=== PATIENT | male | born 1950 | race Two or more races ===

== ENCOUNTER 2020-02-21 19:23 | Inpatient (IN) | payer MEDICAID, MEDICARE ==
[~2020-02-21] VITALS: Ht 170.2 cm; Wt 96.6 kg
[2020-02-21] MEDS ORDERED: BUMETANIDE INJ 4 MG in IV NS 0.9% 50 ML IV ONE (19:30)
[2020-02-21] MEDS ORDERED: NTG 50 MG/D5W250 ML BOTTL 250 ML IV ONE ×2 (19:30→21:03)
--- NOTE | 2020-02-21 19:30 | NUR ---
BIB FROM HOME TO ER BED 5. AAOX3. MILD RESP DISTRESS, TACHYPNEIC. REPORTED SATTING @ 89% @ 6LPM. BROUGHT IN FOR SOB, DESATURATION AND CP SINCE THIS AM. PT WAS RECENTLY DISCHARGED FROM THE HOSPITAL. REPORTED NEGATIVE FOR COVID. PT WAS PLACED ON 02 VIA NON REBREATHER @ 15LPM PER MD ORDER AND SATTING AT 98%. NOTED BILAT SWELLING ON BOTH LEGS WITH OPEN ULCERS. PT IS PLACED ON MONITOR. MD WAS AT BEDSIDE FOR EVAL. PT ON MONITOR.
[2020-02-21] MEDS ORDERED: BUMETANIDE INJ 4 MG in IV NS 0.9% 24 ML IV ONE (20:00)
[2020-02-21 20:44] LABS: BASOPHILS # (AUTO) 0.1 /CMM (0.0-0.2); BASOPHILS % (AUTO) 0.9 % (0.0-2.0); EOSINOPHILS % (AUTO) 1.8 % (0.0-6.0); HEMATOCRIT 33 % (39-51); HEMOGLOBIN 9.9 g/dL (13.5-17.5); LYMPHOCYTES # (AUTO) 10.7 /CMM (0.8-4.8); LYMPHOCYTES % (AUTO) 64.8 % (20.0-44.0); MEAN CORPUSCULAR HGB CONC 30 g/dl (31.0-36.0); MEAN CORPUSCULAR VOLUME 84 fL (80-96); MONOCYTES # (AUTO) 0.5 /CMM (0.1-1.30); MONOCYTES % (AUTO) 2.9 % (2.0-12.0); NEUTROPHILS # (AUTO) 4.9 /CMM (1.8-8.9); NEUTROPHILS % (AUTO) 29.6 % (43.0-81.0); PLATELET COUNT (AUTO) 298 /CMM (150-450); RED BLOOD CELL COUNT(AUTO) 3.98 MIL/uL (4.5-6.0); WHITE BLOOD COUNT (AUTO) 16.6 K/uL (4.3-11.0)
[2020-02-21 20:55] LABS: CREATININE 2.7 mg/dL (0.6-1.3); POTASSIUM 4.9 mmol/L (3.5-5.1)
[2020-02-21 21:07] LABS: ALBUMIN 3.3 g/dL (3.4-5.0); BILIRUBIN,DIRECT 0.1 mg/dL (0.0-0.2); BILIRUBIN,TOTAL 0.4 mg/dL (0.2-1.0); TOTAL PROTEIN, SERUM 7.2 g/dL (6.4-8.2)
[2020-02-21 21:30] LABS: EOSINOPHILS % (MANUAL) 4 % (0-4); LYMPHOCYTES % (MANUAL) 56 % (16-48); MONOCYTES % (MANUAL) 3 % (0-11.0); NEUTROPHILS % (MANUAL) 37 (42-76)
--- NOTE | 2020-02-21 21:51 | NUR ---
PT TITRATED TO SIMPLE FACE MASK AT 10LPM. TOLERATING WELL W/O ANY DISTRESS. MD AWARE
[2020-02-21] MEDS ORDERED: MAGNESIUM HYDROXIDE 30 ML UDC PO PRN (22:00)
[2020-02-21] MEDS ORDERED: Z GUARD REMEDY 2 OZ OINT TP PRN (22:00)
[2020-02-21] MEDS ORDERED: ZOLPIDEM TARTRATE 5 MG TABLET PO PRN (22:00)
[2020-02-21] MEDS ORDERED: ONDANSETRON HCL/PF 4 MG/2 ML VIAL IVP PRN (22:00)
[2020-02-21] MEDS ORDERED: HYDROCODONE/APAP 5/325MG 1 EACH TABLET PO PRN (22:00)
[2020-02-21] MEDS ORDERED: ACETAMINOPHEN 325 MG TABLET PO PRN (22:00)
[2020-02-21] MEDS ORDERED: MAG HYDROX/AL HYDROX/SIMETH 30 ML UDC PO PRN (22:00)
[2020-02-21] MEDS ORDERED: ENALAPRILAT DIHYD. (2.5MG/ML) 1.25 MG/ML VIAL IV ONE (22:00)
[2020-02-21] MEDS ORDERED: ENALAPRILAT INJ (1.25 MG/ML) 1.25 MG/ML VIAL IV ONE (22:34)
--- NOTE | 2020-02-21 22:39 | NUR ---
PT NOTED DESATTING AT 89% W/ 10LMP VIA FACE MASK. PT NOTED RR OF 10. PT PLACED BACK ON NON REBREATHER 15LPM BUT O2 SAT KEEP GOING DOWN WITH LOWEST NOTED @ 63%. PT IS VERY DIFFICULT TO ARROUSE W/ STERNAL RUB.
--- NOTE | 2020-02-21 22:47 | NUR ---
VS. PREP FOR INTUBATION
[2020-02-21] MEDS ORDERED: PROPOFOL 100 ML ONE (22:51)
--- NOTE | 2020-02-21 22:51 | NUR ---
ROCURONIUM 80MG IVP
--- NOTE | 2020-02-21 22:53 | NUR ---
INTUBATED. ET 7.5 24 @ LIP
--- NOTE | 2020-02-21 22:56 | NUR ---
GOD DAUGHTER FRANKLIN PERALESOPCP-[phone]
--- NOTE | 2020-02-21 22:57 | NUR ---
VENT SETTING: AC16 500VT 100% +5 PEEP
--- NOTE | 2020-02-21 22:59 | NUR ---
PROPOFOL DRIP STARTED @ 5MCG/MIN
--- NOTE | 2020-02-21 23:20 | NUR ---
RT rt was called to er bed 5 for intubation of pt for sob. @2253 pt was intubated with 7.5 ett and secured at 24 cm at lip. pt was placed on vent with the settings AC 16 500 100% +5. pink tinged secretions were suctioned. bilateral chest rise was seen. abg to follow
[2020-02-21] MEDS ORDERED: ROCURONIUM BROMIDE 100 MG/10 ML VIAL IV ONE (23:30)
[2020-02-21] MEDS ORDERED: PROPOFOL 100 ML IV PRN (23:30)
[2020-02-22] VITALS (30 sets, daily range): BP systolic 121–177; BP diastolic 58–90
[2020-02-22] MEDS ORDERED: VANCOMYCIN 1 GM VIAL ONE (00:29)
[2020-02-22] MEDS ORDERED: VANCOMYCIN 2 GM in IV NS 0.9% 500 ML IV ONE (00:30)
--- NOTE | 2020-02-22 00:37 | NUR ---
P-ROPOFOL INCREASE TO 10MCG/MIN. PT STARTED TO SHOW SIGNS OF WAKING UP
--- NOTE | 2020-02-22 00:45 | NUR ---
URINE OUT FROM WALTER CATH NOTED @ 750MG
--- NOTE | 2020-02-22 00:50 | NUR ---
REPORT GIVEN TO KLEBER HERNANDEZ FOR CONSTANTINE
--- NOTE | 2020-02-22 01:10 | NUR ---
RN/ICU-ADMITTED THIS 69Y/O MALE FROM ER BY [facility] ACCOMPANIED BY ER STAFF PER ACLS PROTOCOL. NURSING FOCUS, ALTERED RESPIRATORY STATUS R/T DIAGNOSIS:ACUTE RESPIRATORY FAILURE, R/O SEPSIS. ROUTINE ICU ADMISSION CARE INITIATED.
--- NOTE | 2020-02-22 01:14 | NUR ---
PT TRANSPORTED TO UNIT ON GURNEY WITH EMT, RT AND RN AT BEDSIDE W/ ACLS PROTOCOL. NAD NOTED DURINF TRANSPORT.
--- NOTE | 2020-02-22 01:20 | NUR ---
RN/ICU-PT. ON STRICT CONTACT ISOLATION R/O SEPSIS. INTUBATED ON AC MODE, SATS.- 95%, AT TIMES NOT TRACKING DUE TO VERY COLD EXTREMITIES, SEDATED ON DIPRIVAN DRIP AT 10MCG/KG/MIN. PER PROTOCOL. W/ GIOVANI. SOFT WRIST RESTRAINTS ON. WILL MONITOR CLOSELY. AFEBRILE. TEMPT. 97.9/F PT. WITH SKIN ISSUES. WILL CONSULT DIRECTOR EMERGENCY DEPARTMENT.
[2020-02-22] MEDS: PROPOFOL 100 ML IV PRN ×3 (01:40→15:11)
[2020-02-22 02:16] LABS: ABG BASE EXCESS 6.5 mmol/L; ABG OXYGEN SATURATION 99.7 % (92.0-98.5); ABG PCO2 67.7 mmHg (35.0-45.0); ABG PH 7.319 (7.350-7.450); ABG PO2 269.8 mmHg (75.0-100.0); AaDO2 375.5 mmHg; COHb 0.5 % (0.5-1.5); MetHb 0.2 % (0.0-1.5); SITE, ABG Left Brachial; VENT MODE, BG AC 16 500 100% +5
--- NOTE | 2020-02-22 02:28 | NUR ---
RT @0223 RR was increased from 16 to 20 and fio2 was decreased from 100% to 70% post abg results. ABG: pH 7.31 co2 67 po2 269 hco3 34.
[2020-02-22 05:12] LABS: BASOPHILS % (AUTO) 0.3 % (0.0-2.0); EOSINOPHILS % (AUTO) 0.1 % (0.0-6.0); HEMATOCRIT 28 % (39-51); HEMOGLOBIN 8.5 g/dL (13.5-17.5); LYMPHOCYTES # (AUTO) 6.5 /CMM (0.8-4.8); LYMPHOCYTES % (AUTO) 54.2 % (20.0-44.0); MEAN CORPUSCULAR HGB CONC 30 g/dl (31.0-36.0); MEAN CORPUSCULAR VOLUME 83 fL (80-96); MONOCYTES # (AUTO) 0.5 /CMM (0.1-1.30); MONOCYTES % (AUTO) 4.2 % (2.0-12.0); NEUTROPHILS % (AUTO) 41.2 % (43.0-81.0); PLATELET COUNT (AUTO) 277 /CMM (150-450); RED BLOOD CELL COUNT(AUTO) 3.42 MIL/uL (4.5-6.0); WHITE BLOOD COUNT (AUTO) 12.1 K/uL (4.3-11.0)
[2020-02-22 05:29] LABS: C-REACTIVE PROTEIN 2.8 mg/dL (0.0-0.9)
[2020-02-22 05:37] LABS: ALBUMIN 2.9 g/dL (3.4-5.0); BILIRUBIN,TOTAL 0.6 mg/dL (0.2-1.0); CREATININE 2.9 mg/dL (0.6-1.3); MAGNESIUM 2.3 mg/dL (1.8-2.4); PHOSPHORUS 4.2 mg/dL (2.5-4.9); POTASSIUM 4.3 mmol/L (3.5-5.1); TOTAL PROTEIN, SERUM 6.4 g/dL (6.4-8.2)
[2020-02-22] MEDS ORDERED: PIPERACILLIN /TAZOBACTAM 2.25 G VIAL IV ONE (05:47)
[2020-02-22] MEDS ORDERED: PIPERACILLIN /TAZOBACTAM 4.5 G in IV D5W 50 ML IV SCH (06:00)
[2020-02-22] MEDS ORDERED: ZOSYN IVPB 4.5 G in IV D5W 50ml IV ONE (06:00)
--- NOTE | 2020-02-22 07:40 | NUR ---
WOUND CARE CONSULT: REVIEWED CHART, NURSING DOCUMENTATION INCLUDING ADMISSION PHOTOS AND SPOKE WITH RN. PER NURSING REPORT AND ADMISSION PHOTOS THERE IS RASH TO GROIN AREA, RT LOWER LEG WOUND AND LEFT LEG BLISTERS WITH SWELLING AND REDNESS. RECOMMEND DPM CONSULT. DR SANDERS NOTIFIED OF CONSULT REQUEST. PT ON ADAM ISOFLEX LOW AIRLOSS BED. RECOMMENDATIONS MADE FOR SKIN PROTECTION AND DISCUSSED WITH NURSING STAFF. MD IN AGREEMENT WITH PLAN OF CARE.
--- NOTE | 2020-02-22 07:40 | NUR ---
PATIENT SERVICES CLERK NOTES PATIENT IN BED SEDATED ON PROPOFOL 15MCG, ON DROPLET ISOLATION POSSIBLE FOR COVID-19. ON WALTER CATHETER. NO SOB OR DISCOMFORT NOTED AT THIS TIME. BILATERAL LOWER EXTREMITIES ARE RED AND WARM. WILL CONTACT DR VELEZ TO OBTAIN DOPPLER TEST. CALL LIGHT WITHIN REACH BED AT THE LOWEST POSITION LOCKED. WILL CONTINUE TO MONITOR THE PATIENT `S CONDITION.
[2020-02-22] MEDS ORDERED: TIOT18CA3 IH (08:03)
[2020-02-22] MEDS ORDERED: RIVA15TA PO (08:03)
[2020-02-22] MEDS ORDERED: TORS20TA3 PO (08:03)
[2020-02-22] MEDS ORDERED: ATOR40TA PO (08:03)
[2020-02-22] MEDS ORDERED: TAMS-12 PO (08:03)
[2020-02-22] MEDS ORDERED: ASPI-1169 PO (08:03)
[2020-02-22] MEDS ORDERED: PREG75CA PO (08:03)
[2020-02-22] MEDS ORDERED: MERO1VIA23 IV (08:03)
[2020-02-22] MEDS ORDERED: METO25TA3 PO (08:03)
[2020-02-22] MEDS ORDERED: AMIO200T4 PO (08:03)
[2020-02-22] MEDS ORDERED: FINA5TAB11 PO (08:03)
[2020-02-22] MEDS ORDERED: FLUT16SP (08:03)
[2020-02-22] MEDS ORDERED: FLUT1DIS3 IH (08:03)
[2020-02-22] MEDS ORDERED: ALBU2.5V38 IH (08:04)
[2020-02-22] MEDS: FUROSEMIDE 100 MG/10 ML VIAL IV SCH ×3 (08:14→15:48)
[2020-02-22] MEDS: ASPIRIN 81 MG TAB.CHEW PO SCH ×2 (08:15→09:00)
[2020-02-22] MEDS: PANTOPRAZOLE 40 MG/PACK PACK NG SCH ×2 (08:15→09:00)
[2020-02-22] MEDS ORDERED: FEE PK DOSING 1 MIN EA MC ONE (08:28)
[2020-02-22 08:35] LABS: FERRITIN 331 ng/mL (8-388); THYROID STIMULATING HORMONE 23.438 uIU/mL (0.358-3.74)
[2020-02-22] MEDS ORDERED: PANTOPRAZOLE 40 MG VIAL IV SCH (09:00)
--- NOTE | 2020-02-22 09:00 | NUR ---
HEALTH INFORMATION MANAGERS NOTES PROTONIX AND ASPIRIN NOTE ADMINISTRATED PATIENT NPO STATUES. RECEIVED AN NG TUBE INSERTION ORDER . WILL FOLLOW UP WITH MD TO DETERMINE THE MEDICATION ADMINISTRATION.
[2020-02-22 09:03] LABS: ABG BASE EXCESS 8.7 mmol/L; ABG OXYGEN SATURATION 98.5 % (92.0-98.5); ABG PCO2 40.6 mmHg (35.0-45.0); ABG PH 7.519 (7.350-7.450); ABG PO2 133.3 mmHg (75.0-100.0); AaDO2 322.2 mmHg; MetHb 0.8 % (0.0-1.5); O2Hb 96.7 % (94.0-97.0); PEEP,BG 5 cm H2O; SITE, ABG Right Radial; VT, ABG 500 mL
[2020-02-22] MEDS ORDERED: ROCURONIUM BROMIDE 50 MG/5 ML ONE (09:06)
--- NOTE | 2020-02-22 09:10 | NUR ---
PROFESSIONAL SYSTEM ADMINISTRATOR NOTES RECEIVED A CALL FROM THE GOD DAUGHTER FRANKLIN PERALES. SHE PROVIDED HER PHONE NUMBER TO CONTACT HER IN CASE OF NEED. PHONE NUMBER PLACED IN CHART ON FACE SHEET.
[2020-02-22] MEDS: CLOTRIMAZOLE 1% 15 GM TUBE TP SCH ×2 (09:11→17:35)
[2020-02-22 09:29] LABS: IRON, SERUM 23 ug/dl (50-175); TOTAL IRON BINDING CAPACITY 379 ug/dl (250-450)
--- NOTE | 2020-02-22 09:45 | NUR ---
ESTIMATOR PRINTING NOTES NG TUBE INSERTED SUCCESSFULLY. AUSCULTATED AND PATENT.
--- NOTE | 2020-02-22 10:47 | NUR ---
CHICKEN CLEANER NOTES PER DR VELEZ IT IS OK NO KEEP PATIENT NPO EXCEPT MEDS. WILL WAIT FOR CHEST XRAY TO CONFIRM NG TUBE PLACEMENT TO ADMINISTER PO MEDS.
--- NOTE | 2020-02-22 10:48 | NUR ---
CORRESPONDENCE DICTATOR NOTES VACATION SEDATION PERFORMED FOR THE PATIENT. PATIENT WAS AGITATED WHEN PROPOFOL DECREASED TO 10MCG. INCREASED THE PROPOFOL TO 15MCG GRADUALLY TO KEEP PATIENT CALM.
[2020-02-22] MEDS ORDERED: PIPERACILLIN /TAZOBACTAM 3.375 G in IV D5W 100 ML IV SCH (12:00)
--- NOTE | 2020-02-22 15:24 | NUR ---
TRAVELING PLANT OPERATOR NOTES ADVANCED 5 CM OF NASOGASTRIC TUBE PER X RAY RESULT.
--- NOTE | 2020-02-22 19:20 | NUR ---
ELECTRIC DETECTOR OPERATOR NOTES PATIENT IN BED INTUBATED, SEDATED, ALL NEEDS ATTENDED. NO SOB OR DISCOMFORT AT THIS TIME. CALL LIGHT WITHIN REACH, BED AT THE LOWEST POSITION LOCKED. REPORT GIVEN TO ABSEILING INSTRUCTOR NURSE.
[2020-02-22] MEDS: CEFEPIME 1 GM in IV D5W 50 ML IV SCH (20:37)
[2020-02-23] VITALS (25 sets, daily range): BP systolic 131–175; BP diastolic 72–108
[2020-02-23] MEDS: PROPOFOL 100 ML IV PRN ×3 (03:32→21:00)
[2020-02-23 06:18] LABS: BASOPHILS # (AUTO) 0.1 /CMM (0.0-0.2); BASOPHILS % (AUTO) 0.4 % (0.0-2.0); EOSINOPHILS % (AUTO) 1.9 % (0.0-6.0); HEMATOCRIT 33 % (39-51); HEMOGLOBIN 9.7 g/dL (13.5-17.5); LYMPHOCYTES # (AUTO) 9.3 /CMM (0.8-4.8); LYMPHOCYTES % (AUTO) 65.3 % (20.0-44.0); MEAN CORPUSCULAR HGB CONC 30 g/dl (31.0-36.0); MEAN CORPUSCULAR VOLUME 81 fL (80-96); MONOCYTES # (AUTO) 0.3 /CMM (0.1-1.30); MONOCYTES % (AUTO) 2.1 % (2.0-12.0); NEUTROPHILS # (AUTO) 4.3 /CMM (1.8-8.9); NEUTROPHILS % (AUTO) 30.3 % (43.0-81.0); PLATELET COUNT (AUTO) 367 /CMM (150-450); WHITE BLOOD COUNT (AUTO) 14.2 K/uL (4.3-11.0)
[2020-02-23 06:39] LABS: CREATINE KINASE, TOTAL 48 U/L (39-308)
[2020-02-23 06:49] LABS: MAGNESIUM 2.1 mg/dL (1.8-2.4)
[2020-02-23 06:52] LABS: ALANINE AMINOTRANSFERASE 23 U/L (12-78); ALBUMIN 3.3 g/dL (3.4-5.0); ALKALINE PHOSPHATASE 100 U/L (46-116); ASPARTATE AMINOTRANSFERASE 14 U/L (15-37); B-TYPE NATRIURETIC PEPTIDE 4261 PG/ML (0-125); BILIRUBIN,TOTAL 0.9 mg/dL (0.2-1.0); CALCIUM, SERUM 8.5 mg/dL (8.5-10.1); CHLORIDE 103 mmol/L (98-107); CREATININE 2.9 mg/dL (0.6-1.3); GLUCOSE 86 mg/dL (74-106); PHOSPHORUS 3.8 mg/dL (2.5-4.9); POTASSIUM 3.7 mmol/L (3.5-5.1); SODIUM SERUM 149 mmol/L (136-145); TOTAL PROTEIN, SERUM 7.3 g/dL (6.4-8.2); UREA NITROGEN, BLOOD 41 mg/dL (7-18)
[2020-02-23 07:23] LABS: CARBON DIOXIDE 41 mmol/L (21-32)
--- NOTE | 2020-02-23 07:23 | NUR ---
BRONZE PLATER NOTES (CRITICAL LAB) RECIVED CALL FROM LAB FOR BLOOD co2 41. WILL NOTIFY
--- NOTE | 2020-02-23 07:40 | NUR ---
INSPECTOR MACHINED PARTS NOTES PATIENT IN BED SEDATED ON PROPOFOL 15MCG, ON DROPLET ISOLATION POSSIBLE FOR COVID-19. ON WALTER CATHETER. NO SOB OR DISCOMFORT NOTED AT THIS TIME. BILATERAL LOWER EXTREMITIES ARE RED AND WARM. DOPPLER TEST PENDING. CALL LIGHT WITHIN REACH BED AT THE LOWEST POSITION LOCKED. WILL CONTINUE TO MONITOR THE PATIENT `S CONDITION.
[2020-02-23] MEDS: LEVOTHYROXINE INJ 100 MCG VIAL IV SCH (07:46)
[2020-02-23] MEDS: ASPIRIN 81 MG TAB.CHEW PO SCH (08:55)
[2020-02-23] MEDS: PANTOPRAZOLE 40 MG/PACK PACK NG SCH (08:56)
[2020-02-23] MEDS: HEPARIN SODIUM, PORCINE 5000 UNITS/1 ML VIAL SQ SCH ×2 (08:58→20:32)
[2020-02-23] MEDS: CLOTRIMAZOLE 1% 15 GM TUBE TP SCH ×2 (08:59→17:18)
--- NOTE | 2020-02-23 10:01 | NUR ---
DEDICATED LOCAL TRUCK DRIVER NOTES PER DR MURRAY WEANING THE PATIENT. PROPOFOL DECREASED TO 0MCH AND PATIENT WAS ABLE TO OPEN AND CLOSE HIS EYES MOVE RIGHT HAND FINGERS AND NOT ABLE TO MOVE THE TOES. PATIENT STILL ON RESTRAINS.
[2020-02-23 11:21] LABS: APPEARANCE,URINE CLEAR (CLEAR); BILIRUBIN,URINE NEGATIVE (NEGATIVE); BLOOD, URINE NEGATIVE Ery/uL (NEGATIVE); COLOR,URINE YELLOW (YELLOW); KETONES,URINE NEGATIVE (NEGATIVE); LEUKOCYTE ESTERASE ,URINE NEGATIVE (NEGATIVE); NITRITE, URINE NEGATIVE (NEGATIVE); PROTEIN,URINE NEGATIVE (NEGATIVE); UGLUCOSE NEGATIVE (NEGATIVE); UROBILINOGEN,URINE 0.2 EU/dL (0.2)
[2020-02-23 11:27] LABS: ABG BASE EXCESS 12.5 mmol/L; ABG OXYGEN SATURATION 96.8 % (92.0-98.5); ABG PCO2 56.6 mmHg (35.0-45.0); ABG PH 7.448 (7.350-7.450); ABG PO2 93.5 mmHg (75.0-100.0); AaDO2 126.6 mmHg; COHb 0.3 % (0.5-1.5); MetHb 0.4 % (0.0-1.5); O2Hb 96.1 % (94.0-97.0); PEEP,BG 5 cm H2O; SITE, ABG Right Radial; VT, ABG 500 mL
[2020-02-23 11:39] LABS: CREATININE, URINE 25.3 MG/DL (30.0-125.0); URINE TOTAL PROTEIN 20.1 mg/dL (0-11.9)
[2020-02-23] MEDS: VANCOMYCIN 1.25 GM in IV D5W 250 ML IV SCH (11:45)
--- NOTE | 2020-02-23 12:22 | NUR ---
PT ON SIMV MODE TOLERATING WELL AT THIS TIME MD AT BEDSIDE AWARE OF CHANGES. PT TO REMAIN ON SIMV MODE OVERNIGHT PER DR TURNER. Addendum: 02/23/20 at 1350 by SARIAH CHAVARRIA RT Amended: Links added.
[2020-02-23 12:39] LABS: EOSINOPHIL,URINE None Seen
--- NOTE | 2020-02-23 13:46 | NUR ---
CHILD & ADOLESCENT PSYCHIATRIST NOTES NOTIFIED DR VELEZ FOR MEDICATION RECON.
--- NOTE | 2020-02-23 14:36 | NUR ---
PT PLACED BACK ON AC MODE DUE TO ELEVATED WORK OF BREATHING. Addendum: 02/23/20 at 1447 by SARIAH CHAVARRIA RT Amended: Links added.
--- NOTE | 2020-02-23 19:04 | NUR ---
ASSISTANT SCIENTIST NOTES PER DR VELEZ IT IS OK TO INSERT MIDLINE NOTIFIED ANDREA MIDLINE NURSE.
--- NOTE | 2020-02-23 19:48 | NUR ---
RISK CONTROL MANAGER NOTES PATIENT IN BED SEDATED AND NO SOB OR DISCOMFORT NOTED. ALL NEED ATTENDED. MIDLINE ORDER OBTAINED. REPORT GIVEN TO PRINCIPAL STATISTICAL SCIENTIST NURSE.
--- NOTE | 2020-02-23 20:00 | NUR ---
Received patient sedated on Diprivan gtt at 20 mcg/kg/min.Orally intubated to mechanical vent . Vent settings well tolerated,SPO2 100%.No respiratory distress noted.Dx: Sepsis,Acute Respiratory Failure, CV-S.Afebrile.AFIB controlled.Normotensive.L nares NGT intact,patent and clamped.NPO status.FC to gravity drainage.Patient turned and repositioned.Droplet/Contact Isolation precaution maintained.Bed low,locked,side rails up x 2 and call light at bedside.Continue monitoring.
[2020-02-23] MEDS: CEFEPIME 1 GM in IV D5W 50 ML IV SCH (20:02)
--- NOTE | 2020-02-23 21:00 | NUR ---
CATHY MIDLINE inserted by Berry Robertson RN.
[2020-02-24] VITALS (28 sets, daily range): BP systolic 121–162; BP diastolic 64–97
[2020-02-24] MEDS: PROPOFOL 100 ML IV PRN ×4 (04:40→20:42)
--- NOTE | 2020-02-24 05:00 | NUR ---
Patient with periods of agitation and combative.Diprivan gtt titrated to sedation.Bilateral soft wrist restraints in place and protocol implemented.VSS.AM care done.Continue monitoring.
[2020-02-24 05:19] LABS: BASOPHILS % (AUTO) 0.4 % (0.0-2.0); EOSINOPHILS % (AUTO) 3.9 % (0.0-6.0); HEMATOCRIT 27 % (39-51); HEMOGLOBIN 8.4 g/dL (13.5-17.5); LYMPHOCYTES # (AUTO) 7.1 /CMM (0.8-4.8); LYMPHOCYTES % (AUTO) 67.2 % (20.0-44.0); MEAN CORPUSCULAR HGB CONC 31 g/dl (31.0-36.0); MEAN CORPUSCULAR VOLUME 80 fL (80-96); MONOCYTES # (AUTO) 0.4 /CMM (0.1-1.30); MONOCYTES % (AUTO) 3.6 % (2.0-12.0); NEUTROPHILS # (AUTO) 2.6 /CMM (1.8-8.9); NEUTROPHILS % (AUTO) 24.9 % (43.0-81.0); PLATELET COUNT (AUTO) 292 /CMM (150-450); RED BLOOD CELL COUNT(AUTO) 3.39 MIL/uL (4.5-6.0); WHITE BLOOD COUNT (AUTO) 10.5 K/uL (4.3-11.0)
[2020-02-24 05:21] LABS: CALCIUM, SERUM 8.3 mg/dL (8.5-10.1); CREATININE 2.2 mg/dL (0.6-1.3); MAGNESIUM 2.2 mg/dL (1.8-2.4); PHOSPHORUS 3.2 mg/dL (2.5-4.9); POTASSIUM 3.8 mmol/L (3.5-5.1)
[2020-02-24 06:27] LABS: BAND % (MANUAL) 1 % (0.0-5.0); EOSINOPHILS % (MANUAL) 2 % (0-4); LYMPHOCYTES % (MANUAL) 54 % (16-48); METAMYELOCYTES % 1 % (0-0); MONOCYTES % (MANUAL) 8 % (0-11.0); NEUTROPHILS % (MANUAL) 31 (42-76); REACTIVE LYMPHOCYTES 3 % (0-0)
[2020-02-24] MEDS: PANTOPRAZOLE 40 MG/PACK PACK NG SCH (07:48)
[2020-02-24] MEDS: LEVOTHYROXINE INJ 100 MCG VIAL IV SCH (07:48)
[2020-02-24] MEDS: ASPIRIN 81 MG TAB.CHEW PO SCH (07:48)
[2020-02-24] MEDS: HEPARIN SODIUM, PORCINE 5000 UNITS/1 ML VIAL SQ SCH (07:51)
--- NOTE | 2020-02-24 07:55 | NUR ---
RT PATIENT REC'D ORALLY INTUBATED ON [facility] VENT WITH ORFERED SETTINGS. VENT ALARMS CHECKED + AUDIBLE. CUFF PRESSURE CHECKED ASSISTANT OFFICE MANAGER. ETT SECURE AND IN PROPER POSITION. AMBU BAG AT HOB. Addendum: 02/24/20 at 1551 by MARGARITA FRY RT Amended: Links added.
[2020-02-24 08:54] LABS: ABG BASE EXCESS 11.4 mmol/L; ABG OXYGEN SATURATION 99.2 % (92.0-98.5); ABG PCO2 48.7 mmHg (35.0-45.0); ABG PH 7.488 (7.350-7.450); ABG PO2 148.1 mmHg (75.0-100.0); AaDO2 153.6 mmHg; COHb 0.8 % (0.5-1.5); MetHb 0.3 % (0.0-1.5); O2Hb 98.1 % (94.0-97.0); PEEP,BG 5 cm H2O; SITE, ABG Right Radial; VT, ABG 500 mL
--- NOTE | 2020-02-24 09:00 | NUR ---
Sedation Vacation Notes Patient awakens, makes eye contact, mouths words, somewhat follows command
[2020-02-24] MEDS: hydrALAZINE HCL 50 MG TABLET PO SCH ×3 (11:02→16:12)
[2020-02-24] MEDS: CLOTRIMAZOLE 1% 15 GM TUBE TP SCH ×2 (11:03→16:17)
[2020-02-24] MEDS: NITROGLYCERIN 30 GM TUBE TP SCH ×2 (11:10→21:00)
[2020-02-24] MEDS ORDERED: ALBUTEROL FS 2.5 MG/3 ML VIAL.NEB IH PRN (15:00)
[2020-02-24] MEDS: AMIODARONE HCL 200 MG TABLET PO SCH (16:16)
[2020-02-24] MEDS: PREGABALIN 25 MG CAPSULE PO SCH (16:17)
[2020-02-24] MEDS: CEFEPIME 1 GM in IV D5W 50 ML IV SCH (19:43)
[2020-02-24] MEDS: VANCOMYCIN 1.25 GM in IV D5W 250 ML IV SCH (23:56)
[2020-02-25] VITALS (22 sets, daily range): BP systolic 133–161; BP diastolic 73–99
[2020-02-25] MEDS: PROPOFOL 100 ML IV PRN ×5 (02:21→17:38)
[2020-02-25 04:51] LABS: BASOPHILS % (AUTO) 0.4 % (0.0-2.0); EOSINOPHILS % (AUTO) 5.3 % (0.0-6.0); HEMATOCRIT 25 % (39-51); HEMOGLOBIN 7.9 g/dL (13.5-17.5); LYMPHOCYTES # (AUTO) 5.9 /CMM (0.8-4.8); LYMPHOCYTES % (AUTO) 68.5 % (20.0-44.0); MEAN CORPUSCULAR HGB CONC 32 g/dl (31.0-36.0); MEAN CORPUSCULAR VOLUME 80 fL (80-96); MONOCYTES # (AUTO) 0.3 /CMM (0.1-1.30); MONOCYTES % (AUTO) 3.4 % (2.0-12.0); NEUTROPHILS # (AUTO) 1.9 /CMM (1.8-8.9); NEUTROPHILS % (AUTO) 22.4 % (43.0-81.0); PLATELET COUNT (AUTO) 281 /CMM (150-450); RED BLOOD CELL COUNT(AUTO) 3.11 MIL/uL (4.5-6.0); WHITE BLOOD COUNT (AUTO) 8.6 K/uL (4.3-11.0)
[2020-02-25 05:02] LABS: ALBUMIN 2.4 g/dL (3.4-5.0); BILIRUBIN,TOTAL 0.7 mg/dL (0.2-1.0); CREATININE 2.1 mg/dL (0.6-1.3); MAGNESIUM 2.2 mg/dL (1.8-2.4); PHOSPHORUS 3.2 mg/dL (2.5-4.9); POTASSIUM 3.6 mmol/L (3.5-5.1); TOTAL PROTEIN, SERUM 5.6 g/dL (6.4-8.2)
--- NOTE | 2020-02-25 06:07 | NUR ---
RICE FIELD WORKER Note Patient remains sedated at this time, attached to [facility] vent, tolerating current settings. No acute desats noted. Tele monitor A fib HR 90s-115. L nare NGT intact. Lowe draining to gravity. Wound care and pictures completed. NPO except meds. CATHY midline + R FA 22G. Propofol running @25mcg/kg/min. NS @TKO.
--- NOTE | 2020-02-25 07:00 | NUR ---
LAWN CARE WORKER OPENING PATIENT SEDATED AT THIS TIME. WITH DIPRIVAN @ 25 MCG/KG/MIN. PATIENT ON BEDSIDE MONITOR WITH VITALS STABLE AT THIS TIME. [facility] WITH SETTINGS PRESCRIBE BY PULMO. A/C 12/ TV 500, FI02 50 PEEP 5, L NARE NGT PATENT AND INTACT, WALTER PATENT INTACT, PATIENT HAS GROIN RASH, WITH LOTRIMIN + ZGUARD BLE CELLULITIS. EDEMA BUE/BLE R UA MIDLINE DIP @ 25/MCG/KG/MIN RFA 22G NS TKO BED LOCKED LOWEST POSITION CALL LIGHT WITH IN REACH ALL SAFETY MEASURE IMPLEMENTED PER HOSPITAL POLICY
[2020-02-25] MEDS ORDERED: FLUTICASONE PROPIONATE 16 GM BOTTLE NS SCH (09:00)
[2020-02-25] MEDS ORDERED: ATORVASTATIN 40 MG TABLET PO SCH (09:00)
[2020-02-25] MEDS ORDERED: ASPIRIN 81 MG TAB.CHEW PO SCH (09:00)
[2020-02-25] MEDS ORDERED: TAMSULOSIN 0.4 MG CAP.SR.24H PO SCH (09:00)
[2020-02-25] MEDS ORDERED: FINASTERIDE (5 MG) 5 MG TABLET PO SCH (09:00)
[2020-02-25] MEDS ORDERED: FLUTICASONE/VILANTEROL 1 EACH BLST.W.DEV IH SCH (09:00)
[2020-02-25] MEDS ORDERED: METOPROLOL SUCCINATE 25 MG TAB.SR.24H PO SCH (09:00)
[2020-02-25] MEDS: AMIODARONE HCL 200 MG TABLET PO SCH ×2 (09:52→17:06)
[2020-02-25] MEDS: ASPIRIN 81 MG TAB.CHEW PO SCH (09:52)
[2020-02-25] MEDS: LEVOTHYROXINE INJ 100 MCG VIAL IV SCH (09:52)
[2020-02-25] MEDS: hydrALAZINE HCL 50 MG TABLET PO SCH ×3 (09:53→17:06)
[2020-02-25] MEDS: PANTOPRAZOLE 40 MG/PACK PACK NG SCH (09:53)
[2020-02-25] MEDS: PREGABALIN 25 MG CAPSULE PO SCH ×2 (09:54→17:07)
[2020-02-25] MEDS: NITROGLYCERIN 30 GM TUBE TP SCH (09:55)
[2020-02-25] MEDS: CLOTRIMAZOLE 1% 15 GM TUBE TP SCH ×2 (09:55→17:09)
[2020-02-25 10:07] LABS: PTH, INTACT 160 pg/mL (15-65)
[2020-02-25] MEDS ORDERED: RIVAROXABAN 15 MG TABLET PO SCH (17:00)
--- NOTE | 2020-02-25 17:00 | NUR ---
RN/ICU-PT. FOR TRANSFER TO [facility] ROOM#6.VIA [facility]. GOD DAUGHTER FRANKLIN PERALES(TEL. NO. [phone]) NOTIFIED OF PT. TRANSFER.
--- NOTE | 2020-02-25 18:00 | NUR ---
RN/ICU-[facility] HERE TO MASSAGE THERAPIST PT.
--- NOTE | 2020-02-25 18:30 | NUR ---
RN/ICU-PHONE REPORT GIVEN TO [facility] [place] KLEBER VALLADARES-TEL. NO-[phone]
--- NOTE | 2020-02-25 19:50 | NUR ---
RN/ICU- JUST SPOKE TO DAUGHTER DIGNA BAIRD REGARDING PT. TRANSFER.
[2020-02-26] MEDS ORDERED: VANCOMYCIN 1 GM in IV D5W 250 ML IV SCH ×2
[2020-02-26] MEDS ORDERED: SILVER SULFADIAZINE 50 GM JAR TP SCH (09:00)
[2020-02-26 10:23] LABS: *SPE A/G RATIO 0.9 (0.7-1.7); *SPE ALBUMIN 3.1 g/dL (2.9-4.4); *SPE ALPHA-1-GLOBULIN 0.4 g/dL (0.0-0.4); *SPE ALPHA-2-GLOBULIN 1.1 g/dL (0.4-1.0); *SPE GLOBULIN, TOTAL 3.5 g/dL (2.2-3.9); *SPE M-SPIKE Not Observed g/dL (Not Observed); *SPEGAMMA GLOBULIN 1.1 g/dL (0.4-1.8)
== END 2020-02-25 19:06 | DRG 871 ==
LOC: ER 19:23 → ICU 23:55
PROVIDERS: ADMIT Nurse Practitioner Acute Care; ATTEND Student in an Organized Health Care Education/Training Program
PROC: 5A1945Z Respiratory Ventilation, 24-96 Consecutive Hours (ICD-10-PCS; principal; 2020-02-21)
PROC: 0BH17EZ Insertion of Endotracheal Airway into Trachea, Via Natural or Artificial Opening (ICD-10-PCS; 2020-02-21)
PROC: 05H533Z Insertion of Infusion Device into Right Subclavian Vein, Percutaneous Approach (ICD-10-PCS; 2020-02-23)
DX: A41.9 Sepsis, unspecified organism (principal); J96.01 Acute respiratory failure with hypoxia; N17.0 Acute kidney failure with tubular necrosis; R65.21 Severe sepsis with septic shock; G93.41 Metabolic encephalopathy; J96.02 Acute respiratory failure with hypercapnia; I21.A1 Myocardial infarction type 2; J18.9 Pneumonia, unspecified organism; E44.0 Moderate protein-calorie malnutrition; D68.69 Other thrombophilia; E87.0 Hyperosmolality and hypernatremia; L03.115 Cellulitis of right lower limb; L03.116 Cellulitis of left lower limb; I13.0 Hypertensive heart and chronic kidney disease with heart failure and stage 1 through stage 4 chronic kidney disease, or unspecified chronic kidney disease; J44.1 Chronic obstructive pulmonary disease with (acute) exacerbation; N39.0 Urinary tract infection, site not specified; D50.9 Iron deficiency anemia, unspecified; E03.9 Hypothyroidism, unspecified; E66.9 Obesity, unspecified; E83.51 Hypocalcemia; I48.91 Unspecified atrial fibrillation; N18.9 Chronic kidney disease, unspecified; Z79.01 Long term (current) use of anticoagulants; Z87.891 Personal history of nicotine dependence; Z95.0 Presence of cardiac pacemaker; Z95.1 Presence of aortocoronary bypass graft; N40.0 Benign prostatic hyperplasia without lower urinary tract symptoms; E88.09 Other disorders of plasma-protein metabolism, not elsewhere classified; Z68.33 Body mass index [BMI] 33.0-33.9, adult; S80.822A Blister (nonthermal), left lower leg, initial encounter; X58.XXXA Exposure to other specified factors, initial encounter; Y93.9 Activity, unspecified; Y92.009 Unspecified place in unspecified non-institutional (private) residence as the place of occurrence of the external cause; I50.9 Heart failure, unspecified; D72.820 Lymphocytosis (symptomatic)
CPT/HCPCS: 31720; 36410; 36415; 36600; 70450-TC; 71045-TC; 76770-TC; 80048-TC; 80053-TC; 80061-TC; 80076-TC; 80202-TC; 81000-TC; 82550-TC; 82570-TC; 82728-TC; 82803-TC; 82962-TC; 83540-TC; 83605-TC; 83615-TC; 83735-TC; 83880; 83970; 84100-TC; 84146; 84155; 84155-TC; 84165; 84300-TC; 84439-TC; 84443-TC; 84484-TC; 85025-TC; 85730-TC; 86140-TC; 87040-TC; 87070-TC; 87081-TC; 87086-TC; 93307-TC; 93970-TC; 94002-TC; 94003-TC; 99082-TC; A4216; A4217; G0378; J0692; J1644; J1940; J2543; J3370; J3490; J7030; J7040; J7050; J7060